=== PATIENT | female | born 1950 | race Caucasian/White ===

== ENCOUNTER 2020-09-10 14:01 | Outpatient (CLI) | payer MEDICARE, OTHER, SELFPAY ==
--- NOTE | ~2020-09-10 | CT_ITS ---
EXAMINATION: CT abdomen pelvis w con DATE: 09/10/2020 14:35 INDICATION: Lower abdominal pain. TECHNIQUE: Computed tomography (CT) of the abdomen and pelvis was performed with 100 mL Omnipaque-350 intravenous contrast. Automated exposure control and iterative reconstruction technique were employe d. The dose-length product was 455.39 mGy-cm. COMPARISON: 05/18/2014 FINDINGS: Mild emphysema at the lung bases. Heart size is normal. No pericardial or pleural effusion. Small sli ding-type hiatal hernia. Epigastric ventral hernia containing omental fat which measures 8.0 x 6.3 x 3.7 cm and which extends through a 2 cm diameter orifice. Interval increase in size of a now 9 mm lef t hepatic cyst. Mild central intrahepatic biliary ductal dilation with normal caliber common bile bartolome t which is within normal limits post cholecystectomy with surgical clips at the gallbladder fossa. Sp domenic, left adrenal gland and bilateral kidneys are normal. 1 cm right adrenal nodule with lack of int erval change most consistent with an adenoma. A few punctate calcification at the head and neck of th e pancreas likely sequela of chronic pancreatitis. Again seen is moderate sigmoid predominant diverti culosis with inflammatory stranding surrounding a diverticulum with wall thickening at the proximal s igmoid colon consistent with diverticulitis. No abscess, free intraperitoneal fluid or extraluminal g as to suggest perforation. Small bowel and appendix are normal. Partially decompressed bladder is unr emarkable. The uterus is not identified and has likely been surgically resected. No pathologically enlarged abdominal or pelvic lymphadenopathy. Moderate lower thoracic and mild lumbar spondylosis. IMPRESSION: 1. The graft within, dictated and sigmoid diverticulitis. 2. Fat-containing epigastric ventral hernia. 3. Small sliding-type hiatal hernia. 4. Mild emphysema. Reviewed, dictated and finalized at location A. ON PUNCHER
[2020-09-10 14:32] LABS: Estimated Glomerular Filt Rate > 60
== END 2020-09-10 14:02 | disposition home or self-care (01) ==
PROVIDERS: PCP Internal Medicine; Visit Provider Nurse Practitioner
DX: K43.9 Ventral hernia without obstruction or gangrene (principal); K44.9 Diaphragmatic hernia without obstruction or gangrene; J43.9 Emphysema, unspecified; K76.89 Other specified diseases of liver; K57.30 Diverticulosis of large intestine without perforation or abscess without bleeding; M47.815 Spondylosis without myelopathy or radiculopathy, thoracolumbar region
CPT/HCPCS: 74177; Q9967

== ENCOUNTER 2022-07-13 12:43 | Outpatient (CLI) | payer MEDICARE, OTHER, SELFPAY ==
--- NOTE | ~2022-07-13 | CT_ITS ---
EXAMINATION: CT abdomen pelvis w con INDICATION: Left-sided abdominal pain TECHNIQUE: Computed tomographic images of the abdomen and pelvis were obtained after the administrati on of 100 cc of Omnipaque 350 intravenous contrast. The dose-length product (DLP) was 313.30 mGy-cm. Automated exposure control and iterative reconstruction technique were employed. COMPARISON: 09/10/2020 FINDINGS: Minimal dependent atelectasis is present in the lung bases. The heart size is normal. There is a small sliding hiatal hernia. The gallbladder is surgically absent. There is mild enlargement of the common bile duct and central intrahepatic ducts which is likely due to post cholecystectomy stat e. Cysts of the liver measure up to 10 mm. There is a 6 mm cyst of the spleen. The pancreas and left adrenal gland are normal. There is a stable 10 mm adenoma of the right adrenal gland. A widemouth mid line epigastric hernia containing fat is unchanged. The kidneys are unremarkable. There is colonic di verticulosis. There is edematous stranding of the pericolic fat adjacent to the distal descending col on. There is no evidence of perforation or abscess. No pathologically enlarged abdominal or pelvic ly mph nodes are identified. There is no free intraperitoneal gas or evidence of bowel obstruction. The appendix is normal. There is calcified atherosclerosis of the aorta and many of the other arteries. T here is mild lumbar spondylosis. IMPRESSION: 1. Acute, uncomplicated diverticulitis of the distal descending colon. 2. Stable wid[place] midline epigastric hernia containing fat. Reviewed, dictated and finalized at location B.
[2022-07-13 13:11] LABS: Estimated Glomerular Filt Rate > 60
== END 2022-07-13 12:44 | disposition home or self-care (01) ==
LOC: ANHIMG 12:48
PROVIDERS: PCP Internal Medicine; Visit Provider Clinical Nurse Specialist
DX: K57.92 Diverticulitis of intestine, part unspecified, without perforation or abscess without bleeding (principal); K43.9 Ventral hernia without obstruction or gangrene
CPT/HCPCS: 74177; Q9967

== ENCOUNTER → 2022-09-21 16:20 | Outpatient (CLI) | payer MEDICARE, OTHER, SELFPAY ==
--- NOTE | ~2022-09-21 | MR_ITS ---
EXAMINATION: MR lumbar spine wo con DATE: 09/21/2022 17:04 INDICATION: Low back pain. Radiculopathy. TECHNIQUE: Magnetic resonance imaging (MRI) of the lumbar spine was performed without intravenous con trast. Sequences included sagittal T2-weighted FSE, sagittal T2-weighted FS FSE, sagittal T1-weighted FSE, and axial T2-weighted FSE. COMPARISON: Lumbar spine MRI 01/29/2015 FINDINGS: There is 6 degrees dextrocurvature of thoracolumbar spine. Vertebral body heights are mike l. There is mildly decreased disc height from L2-L3 through L4-L5. The distal spinal cord signal inte nsity is normal. The conus medullaris is at L1. The following disc levels are specifically discussed: L1-L2: The disc is bulging. There is mild bilateral facet joint osteoarthritis. There is mild left ne ural foraminal stenosis. There is mild central canal stenosis. L2-L3: The disc is bulging and has an annular fissure. There is mild bilateral facet joint osteoarthr itis. There is mild bilateral neural foraminal stenosis. There is mild central canal stenosis. L3-L4: The disc is bulging and has an annular fissure. There is mild bilateral facet joint osteoarthr itis. There is mild bilateral neural foraminal stenosis. There is mild central canal stenosis. L4-L5: The disc is bulging and has an annular fissure. There is moderate bilateral facet joint osteoa rthritis. There is severe bilateral neural foraminal stenosis. There is mild central canal stenosis. L5-S1: The disc is bulging and has an annular fissure. There is severe bilateral facet joint osteoart hritis. There is mild bilateral neural foraminal stenosis. There is mild central canal stenosis. IMPRESSION: 1. Mild lumbar spondylosis, worsened from 01/29/2015. Reviewed, dictated and finalized at location A. ER MARKER
== END ==
PROVIDERS: PCP Internal Medicine; Visit Provider Nurse Practitioner Family
DX: M54.16 Radiculopathy, lumbar region (principal); M43.16 Spondylolisthesis, lumbar region
CPT/HCPCS: 72148

== ENCOUNTER → 2022-11-24 10:16 | Outpatient (CLI) | payer MEDICARE, OTHER, SELFPAY ==
--- NOTE | ~2022-11-24 | CT_ITS ---
CT Scan of the Chest without Contrast: Clinical Indication: Personal history of nicotine dependence, lung cancer screening Technique: Contiguous sections were acquired throughout the chest without intravenous contrast. Dose reduction technique was used on this scan by utilizing automated exposure control and iterative recon struction technique. The dose-length product (DLP) was 52.21 mGy-cm. Findings: There is no evidence of any significant mediastinal, hilar or axillary lymphadenopathy. Mild coronary artery calcifications are present. No aortic aneurysm. There is no evidence of pleural or pericardial effusion. 2 mm left lower lobe pulmonary nodule noted (axial image 47). No other significant pulmonary abnormal ity seen. Images through the upper abdomen reveal cholecystectomy clips. Impression: Lung RADS 2: Benign. Twelve-month follow-up screening CT recommended. Reviewed, dictated and finalized at [facility]. [facility] Impression: Lung RADS 2: Benign. Twelve-month follow-up screening CT recommended.
== END ==
PROVIDERS: PCP Internal Medicine; Visit Provider Clinical Nurse Specialist
DX: Z12.2 Encounter for screening for malignant neoplasm of respiratory organs (principal); Z87.891 Personal history of nicotine dependence
CPT/HCPCS: 71271

== ENCOUNTER → 2023-02-01 10:20 | Outpatient (CLI) | payer MEDICARE, OTHER, SELFPAY ==
--- NOTE | ~2023-02-01 | DEXA_ITS ---
Bone Density Report Name: GABE RAWLS Age: 72 Sex: Female Ethnicity: White Date of : 1950 Indication: osteopenia; height loss; hysterectomy; postmenopausal Referring Provider: Susan Madrigal Study: Bone densitometry was performed. Exam Date: February 01, 2023 Accession number: [id number] Bone Density: Region BMD T-score Z-score Classification AP Spine (L1-L4) 0.880 -1.5 0.9 Osteopenia Femoral Neck (Left) 0.723 -1.1 0.9 Osteopenia Total Hip (Left) 0.907 -0.3 1.5 Normal Femoral Neck (Right) 0.704 -1.3 0.8 Osteopenia Total Hip (Right) 0.868 -0.6 1.1 Normal Total Hip Mean 0.888 -0.5 1.3 Normal World Health Organization criteria for BMD impression classify patients as: Normal (T-score at or above -1.0), Osteopenia (T-score between -1.0 and -2.5), or Osteoporosis (T-score at or below -2.5). 10-year Fracture Risk(1): Major Osteoporotic Fracture 10% Hip Fracture 1.8% Reported Risk Factors: [place] (), Neck BMD=0.704, BMI=27.8 (1) FRAX(R) Version 3.08. Fracture probability calculated for an untreated patient. Fracture probability may be lower if the patient has received treatment. Previous Exams: Region Exam Age BMD T-score BMD Change BMD Change Date g/cm2 vs Baseline vs Previous AP Spine(L1-L4) 02/01/2023 72 0.880 -1.5 0.003 -0.010 10/09/2019 69 0.890 -1.4 0.013 0.043* 03/03/2016 65 0.847 -1.8 -0.031* -0.031* 09/09/2011 61 0.878 -1.5 Total Hip(Left) 02/01/2023 72 0.907 -0.3 0.035* 0.013 10/09/2019 69 0.893 -0.4 0.022 -0.002 03/03/2016 65 0.896 -0.4 0.024 0.024 09/09/2011 61 0.872 -0.6 Total Hip(Right) 02/01/2023 72 0.868 -0.6 -0.003 -0.020 10/09/2019 69 0.888 -0.4 0.017 0.012 03/03/2016 65 0.876 -0.5 0.005 0.005 09/09/2011 61 0.870 -0.6 *Denotes significance at 95% confidence level, LSC for AP Spine = 0.022 g/cm2, LSC for Total Hip = 0.027 g/cm2 Clinical Information Provided by Patient: Has used the following medications: Vitamin D, Jhonny Has the following medical conditions: Hysterectomy, DIVERTICULITIS Patient maximum height was 62 Menopause Age: 46 Drinks caffeinated beverages Onset of menses at age 10 Number of children 0 Impression: The patient has low bone mass, based on the Total
--- NOTE | ~2023-02-01 | MM_ITS ---
EXAMINATION: MM screening tracy BI w helga HISTORY: Screening TECHNIQUE: Craniocaudal and mediolateral oblique 3-D tomosynthesis images were obtained and synthetic 2-D images were generated. CAD analysis was submitted and interpreted. COMPARISON: Comparison to multiple prior studies sequentially, with oldest reviewed study dated 03/03. BREAST PARENCHYMAL COMPOSITION: There are scattered areas of fibroglandular density. FINDINGS: There are developing nodular asymmetries centered in the upper outer quadrant of the right breast, middle third. The left breast is stable without evidence for malignancy. IMPRESSION: 1. Developing nodular asymmetries in the right breast. 2. Additional mammographic views and possible breast ultrasound are recommended. BI-RADS Category 0: Incomplete: Needs additional imaging evaluation. Reviewed, dictated and finalized at location A. IMPRESSION: 1. Developing nodular asymmetries in the right breast. 2. Additional mammographic views and possible breast ultrasound are recommended . BI-RADS Category 0: Incomplete: Needs additional imaging evaluation.
== END ==
PROVIDERS: PCP Internal Medicine; Visit Provider Clinical Nurse Specialist
DX: Z12.31 Encounter for screening mammogram for malignant neoplasm of breast (principal); Z78.0 Asymptomatic menopausal state; R92.8 Other abnormal and inconclusive findings on diagnostic imaging of breast; M85.89 Other specified disorders of bone density and structure, multiple sites
CPT/HCPCS: 77063; 77067; 77080

== ENCOUNTER → 2023-02-28 08:11 | Outpatient (CLI) | payer MEDICARE, OTHER, SELFPAY ==
--- NOTE | ~2023-02-28 | MMUS_ITS ---
EXAMINATION: MM diagnostic tracy RT w helga, US breast RT limited HISTORY: Developing nodular asymmetries reported in right breast on 02/01/2023 screening mammogram exa mination TECHNIQUE: Additional 3-D tomosynthesis images of the right breast were performed and synthetic 2-D i mages were generated. CAD analysis was submitted and interpreted. High resolution upper outer and low er-outer quadrant right breast ultrasound was performed. COMPARISON: 02/01/2023 bilateral screening mammogram FINDINGS: MAMMOGRAPHIC FINDINGS: There is nodular appearing fibroglandular stroma in the outer half of the right breast. No suspicious mass or architectural distortion is evident mammographically, but a small mass may be masked by the nodular stroma. ULTRASOUND: 11o'clock 3 cm from nipple: Approximately 2.7 x 5 mm hypoechoic area without internal vascularity or posterior shadowing 10:00 6 cm from nipple: Parallel oval circumscribed largely sonolucent lesion measuring 4 x 6.3 mm, c onsistent with a cyst IMPRESSION: 1. Probable benign findings 2. 6 month diagnostic right mammogram and right breast ultrasound follow-up are recommended BI-RADS category 3, probably benign findings. Reviewed, dictated and finalized at location A. IMPRESSION: 1. Probable benign findings 2. 6 month diagnostic right mammogram and right breast ultrasound follow-up are recommended BI-RADS category 3, probably benign findings.
== END ==
PROVIDERS: PCP Internal Medicine; Visit Provider Clinical Nurse Specialist
DX: R92.8 Other abnormal and inconclusive findings on diagnostic imaging of breast (principal)
CPT/HCPCS: 76642; 77061; 77065; G0279

== ENCOUNTER → 2023-07-14 14:16 | Outpatient (CLI) | payer MEDICARE, OTHER, SELFPAY ==
--- NOTE | ~2023-07-14 | MMUS_ITS ---
EXAMINATION: MM diagnostic tracy RT w helga, US breast RT limited HISTORY: Short-term follow-up of probable benign sonographic findings of 11:00 3 cm from nipple and 1 0:00 6 cm from nipple TECHNIQUE: ML, MLO and CC 3-D tomosynthesis images of the right breast were performed and synthetic 2 -D images were generated. CAD analysis was submitted and interpreted. High resolution targeted right 11:00 and 10:00 breast ultrasound was performed. COMPARISON: February 28, 2023 diagnostic right mammogram and limited right breast ultrasound examination BREAST PARENCHYMAL COMPOSITION: There are scattered areas of fibroglandular density. FINDINGS: MAMMOGRAPHIC FINDINGS: Scattered benign calcifications. No suspicious mass, architectural distortion, malignant calcificatio n, skin thickening or retraction or significant new or developing density is noted compared to 023. ULTRASOUND: 10:00 6 cm from nipple: 7.5 x 4.7 x 4.5 mm circumscribed sonolucency consistent with simple cyst 11:00 3 cm from nipple: Irregular hypoechoic 6.3 x 4.3 x 5.1 mm hypoechoic area with some posterior s hadowing but no internal vascularity on color flow imaging this is increased mildly in size since 02/05. Ultrasound-guided biopsy is recommended. IMPRESSION: 1. Irregular hypoechoic mildly shadowing up to 6.3 mm sonographic lesion of right breast at 11:00 3 c m from nipple 2. Ultrasound-guided biopsy of right breast 11:00 lesion is recommended BI-RADS category 4, suspicious findings. Dr. Manriquez telephoned the mammogram and ultrasound report and ultrasound-guided biopsy recommendation f or right breast 11:00 lesion on 07/17/2023 at hours to Reviewed, dictated and finalized at location A. IMPRESSION: 1. Irregular hypoechoic mildly shadowing up to 6.3 mm sonographic lesion of rig ht breast at 11:00 3 cm from nipple 2. Ultrasound-guided biopsy of right breast 11:00 lesion is recommended BI-RADS category 4, suspicious findings. Dr. Manriquez telephoned the mammogram and ultrasound report and ultrasound-guided b iopsy recommendation for right breast 11:00 lesion on 07/17/2023 at hours to
== END ==
PROVIDERS: PCP Surgery; Visit Provider Surgery
DX: R92.8 Other abnormal and inconclusive findings on diagnostic imaging of breast (principal)
CPT/HCPCS: 76642; 77061; 77065; G0279

== ENCOUNTER 2023-08-09 10:22 | Outpatient (CLI) | payer MEDICARE, OTHER, SELFPAY ==
--- NOTE | ~2023-08-09 | MMUS_ITS ---
EXAMINATION: US breast biopsy RT w image, MM post biopsy invasive RT DATE: 08/09/2023 12:09 (accession [id number]), 08/09/2023 12:08 (accession [id number]) INDICATION: Indeterminate mass in the upper outer quadrant of the right breast. Ultrasound-guided cor e biopsy is requested to evaluate for malignancy. TECHNIQUE AND FINDINGS: The risks and potential benefits of the procedure were discussed with the patient including bleeding and infection. A time out was performed. The skin of the right breast was prepared and draped in usua l sterile fashion. 1% lidocaine was used for superficial anesthesia. 1% lidocaine with epinephrine wa s used for deep anesthesia. A vacuum-assisted biopsy needle was advanced through to the outer edge of the region of interest from an inferolateral approach utilizing sonographic guidance. A total of three tissue core samples were obtained through the lesion. A tissue marker clip was then placed at the biopsy site. Hemostasis was achieved. A sterile bandage was applied. The patient tolerated procedure well and there was no evidence of immediate complication. The patient was given verbal instructions to return to the Emergency Department in the event of severe breast pa in or rapid breast enlargement. A two view right breast mammogram was obtained to document tissue mar ker clip placement. IMPRESSION: 1. Successful ultrasound-guided vacuum-assisted biopsy of right breast mass with tissue marker placem ent. Reviewed, dictated and finalized at location A. IMPRESSION: 1. Successful ultrasound-guided vacuum-assisted biopsy of right breast mass wit h tissue marker placement.
== END 2023-08-09 10:23 | disposition home or self-care (01) ==
PROVIDERS: PCP Internal Medicine; Visit Provider Physician Assistant Surgical
DX: N62 Hypertrophy of breast (principal); R92.0 Mammographic microcalcification found on diagnostic imaging of breast
CPT/HCPCS: 19083; 88305; A4648

== ENCOUNTER 2023-08-22 13:09 | Emergency (ER) | payer MEDICARE, OTHER, SELFPAY ==
--- NOTE | 2023-08-22 13:13 | ED.URI ---
HPI - URI/Sore Throat General Chief Complaint: Upper Respiratory Infection Stated Complaint: Cold symptoms Time Seen by Provider: 08/22/23 13:13 Source: patient Mode of arrival: ambulatory Limitations: no limitations History of Present Illness HPI Narrative: Judy is a 73-year-old female patient presenting to the clinic today with complaints of fatigue, cough, chest congestion, and some shortness of breath x3-4 days. She reports she is having a nonproductive cough. No known fever or chills. MD elicited complaint: sore throat and nasal congestion Related Data Home Medications Medication Instructions Recorded Confirmed bilberry fruit 1,000 mg capsule 1 g PO DAILY 09/10/20 08/22/23 cholecalciferol (vitamin D3) 50 50 mcg PO DAILY 09/10/20 08/22/23 mcg (2,000 unit) capsule latanoprost (PF) 0.005 % eye drops 1 drp ophthalmic (eye) DAILY 09/10/20 08/22/23 lutein 20 mg capsule 25 mg PO DAILY 09/10/20 08/22/23 magnesium 200 mg tablet 144 mg PO DAILY 09/10/20 08/22/23 timolol 0.25 % eye drops 1 drp ophthalmic (eye) DAILY 09/10/20 08/22/23 vitamin B complex 1 tablet PO DAILY 09/10/20 08/22/23 calcium carbonate 200 mg calcium 200 mg PO DAILY 07/21/21 08/22/23 (500 mg) chewable tablet (Tums) elderberry fruit 350 mg capsule 350 mg PO DAILY 11/14/22 08/22/23 vitamin C 500 mg-quercetin 250 1 cap PO DAILY 11/14/22 08/22/23 mg-bioflavonoids, citrus 33 mg capsule (Quercetin Complex) Allergies Allergy/AdvReac Type Severity Reaction Status Date / Time Penicillins Allergy Unknown Swelling Verified 08/22/23 13:17 codeine Allergy Pancreas Verified 08/22/23 13:17 attack Review of Systems Review of Systems: Pertinent positives per HPI. Patient denies any fever, chills, rash, headache, visual changes, dizziness, chest pain, palpitations, nausea, vomiting, diarrhea, constipation, abdominal pain, or any urinary issues. PMF Past Medical History Medical History Chronic airway obstruction Depression Diverticulitis Granuloma annulare Hypercholesterolemia Hyperglycemia EDMOND (obstructive sleep apnea) Postmenopausal Surgical History Surgical History History of hysterectomy History of parotidectomy Family History Family History Sibling Family history of diabetes mellitus in first degree relative Lung cancer Mother Stomach cancer Social History Social History Smoking status: Former smoker Smoking end date: 11/06/99 Alcohol intake: current Substance use: never Substance use type: does not use Lack of Transportation: No Lack of Food: Never True Current Housing: I Have Housing Concerned About Future Housing: No Difficulty Paying Gas/Electric Bills: No Difficulty Paying for Meds: No Currently Unemployed: No Education: Bachelor's Degree Difficulty w/ Childcare or Family Care: No Comments At the time of my signature, I reviewed and agree with the nursing past medical, surgical, social, and family history. There is no relevant family history pertinent to the patient complaint. Exam Narrative: General: Well-developed, well nourished, in no apparent distress Head: Normocephalic, atraumatic Eyes: Pupils equally round and reactive to light bilaterally, EOM intact, sclera and conjunctive clear, no discharge, lids normal Ears: TMs intact and clear, ear canals clear, no drainage, grossly hearing normal. Nose: Nares patent, clear nasal discharge, no inflammation, no sinus tenderness. Mouth: Oral pharynx without lesions or masses, good dentition, MMM. Neck: Supple, trachea midline, no enlargement of anterior or posterior cervical nodes, no thyroid masses or goiter palpable. Cardio: Regular rate and rhythm, s1 and s2 normal, no murmur appreciated. Resp: L
[2023-08-22 13:24] VITALS: BP 110/66; PULSE 70; RESP 16; TEMP 36.9; O2SAT 98
== END 2023-08-22 13:50 | disposition home or self-care (01) ==
PROVIDERS: Emergency Provider Nurse Practitioner Family; PCP Internal Medicine
DX: J06.9 Acute upper respiratory infection, unspecified (principal); Z87.891 Personal history of nicotine dependence; E78.00 Pure hypercholesterolemia, unspecified
CPT/HCPCS: 99213; G0463

== ENCOUNTER 2023-08-25 15:05 | Emergency (ER) | payer MEDICARE, OTHER, SELFPAY ==
--- NOTE | ~2023-08-25 | XR_ITS ---
EXAMINATION: XR chest 2V DATE: 08/25/2023 15:27 INDICATION: Cough and shortness of breath TECHNIQUE: PA and lateral views of the chest are obtained. COMPARISON: None available FINDINGS: The lungs are free of acute opacities. No pleural effusion or pneumothorax. The cardiomedia stinal silhouette is normal. There is moderate thoracic spondylosis. IMPRESSION: 1. No acute cardiopulmonary abnormality. Reviewed, dictated and finalized at location F.
[2023-08-25 15:18] VITALS: BP 108/88; PULSE 87; RESP 16; TEMP 36.2; O2SAT 99
--- NOTE | 2023-08-25 15:36 | ED.URI ---
HPI - URI/Sore Throat General Chief Complaint: Upper Respiratory Infection Stated Complaint: Cough;Sore Throat;Shortness of breath Source: patient Mode of arrival: ambulatory Limitations: no limitations History of Present Illness HPI Narrative: 73-year-old female presenting with complaints of fatigue, nonproductive cough, chest congestion. Onset one week. Patient was seen at this facility 3 days ago, prescribed albuterol inhaler, tessalon perles and prednisone for URI. She reports med compliance, but the cough is worse and kept her up last night. Denies sob, wheezing, n/v/d/f/c. Taking Mucinex and Flonase. Related Data Home Medications Medication Instructions Recorded Confirmed bilberry fruit 1,000 mg capsule 1 g PO DAILY 09/10/20 08/25/23 cholecalciferol (vitamin D3) 50 50 mcg PO DAILY 09/10/20 08/25/23 mcg (2,000 unit) capsule latanoprost (PF) 0.005 % eye drops 1 drp ophthalmic (eye) DAILY 09/10/20 08/25/23 lutein 20 mg capsule 25 mg PO DAILY 09/10/20 08/25/23 magnesium 200 mg tablet 144 mg PO DAILY 09/10/20 08/25/23 timolol 0.25 % eye drops 1 drp ophthalmic (eye) DAILY 09/10/20 08/25/23 vitamin B complex 1 tablet PO DAILY 09/10/20 08/25/23 calcium carbonate 200 mg calcium 200 mg PO DAILY 07/21/21 08/25/23 (500 mg) chewable tablet (Tums) elderberry fruit 350 mg capsule 350 mg PO DAILY 11/14/22 08/25/23 vitamin C 500 mg-quercetin 250 1 cap PO DAILY 11/14/22 08/25/23 mg-bioflavonoids, citrus 33 mg capsule (Quercetin Complex) Allergies Allergy/AdvReac Type Severity Reaction Status Date / Time Penicillins Allergy Unknown Swelling Verified 08/22/23 13:17 codeine Allergy Pancreas Verified 08/22/23 13:17 attack Review of Systems Review of Systems: CONSTITUTIONAL: Denies body aches, fever, chills, or sweats. EYES: Denies visual changes, redness, or discharge. ENT: Reports rhinorrhea, congestion, denies sore throat, or otalgia. CARDIOVASCULAR: Denies chest pain, palpitations, or edema. RESPIRATORY: Reports cough, denies sob, wheezing. GASTROINTESTINAL: Denies abdominal pain, nausea, vomiting, or diarrhea. GENITOURINARY: Denies dysuria or hematuria. SKIN: Denies rash, itching, or wounds. MUSCULOSKELETAL: Denies back pain, joint pain, or myalgia. NEUROLOGIC: Denies headache, numbness, tingling, or weakness. All systems reviewed & are unremarkable except as noted in HPI and below PMFSH Past Medical History Medical History Chronic airway obstruction Depression Diverticulitis Granuloma annulare Hypercholesterolemia Hyperglycemia EDMOND (obstructive sleep apnea) Postmenopausal Surgical History Surgical History History of hysterectomy History of parotidectomy Family History Family History Sibling Family history of diabetes mellitus in first degree relative Lung cancer Mother Stomach cancer Social History Social History Smoking status: Former smoker Smoking end date: 11/06/99 Alcohol intake: current Substance use: never Substance use type: does not use Lack of Transportation: No Lack of Food: Never True Current Housing: I Have Housing Concerned About Future Housing: No Difficulty Paying Gas/Electric Bills: No Difficulty Paying for Meds: No Currently Unemployed: No Education: Bachelor's Degree Difficulty w/ Childcare or Family Care: No Comments At time of signature, I have reviewed and agree with nursing past medical, surgical, social and family history unless otherwise noted. Please see nursing chart for further information. There is no relevant family history pertinent to the presenting complaint Exam Narrative: GENERAL: Well-appearing, in no acute distress. EYES: EOMI. No redness or drainage. Conjunctivae normal. ENT: Mucous membranes
== END 2023-08-25 15:55 | disposition home or self-care (01) ==
PROVIDERS: Emergency Provider Nurse Practitioner Family; PCP Internal Medicine
DX: J06.9 Acute upper respiratory infection, unspecified (principal); Z87.891 Personal history of nicotine dependence; E78.00 Pure hypercholesterolemia, unspecified
CPT/HCPCS: 71046; 99213; G0463

== ENCOUNTER → 2023-11-29 14:21 | Outpatient (CLI) | payer MEDICARE, OTHER, SELFPAY ==
--- NOTE | ~2023-11-29 | CT_ITS ---
EXAMINATION:CT diagnostic chest wo con DATE: 11/29/2023 14:38 INDICATION: Personal history of nicotine dependence. Lung nodule. TECHNIQUE: Computed tomography (CT) of the chest was performed without intravenous contrast. Automate d exposure control and iterative reconstruction technique were employed. The dose-length product (DLP ) was 62.21 mGy-cm. COMPARISON: Chest CT 11/24/2022 FINDINGS: There is mild emphysema. There is mild scarring at the lung apices. There are a few scatter ed nodules in the lungs measuring up to 3 mm. No pleural effusion. The heart size is normal. There ar e coronary artery calcifications. No pericardial effusion. There is a 12 mm cyst in the liver. There is severe thoracic spondylosis. IMPRESSION: 1. Lung-RADS category 2: Benign appearance or behavior. Continue annual screening with noncontrast lo w-dose chest CT in 12 months. Reviewed, dictated and finalized at location E. [employer] IMPRESSION: 1. Lung-RADS category 2: Benign appearance or behavior. Continue annual screeni ng with noncontrast low-dose chest CT in 12 months.
== END ==
PROVIDERS: PCP Clinical Nurse Specialist; Visit Provider Clinical Nurse Specialist
DX: Z12.2 Encounter for screening for malignant neoplasm of respiratory organs (principal); Z87.891 Personal history of nicotine dependence
CPT/HCPCS: 71250

== ENCOUNTER 2024-07-01 12:41 | Outpatient (CLI) | payer MEDICARE, OTHER, SELFPAY ==
--- NOTE | ~2024-07-01 | CT_ITS ---
CT of the Abdomen and Pelvis: Indication: Abdominal pain Technique: 2.5 mm axial scans were obtained through the abdomen and pelvis following intravenous adm inistration of 100 cc of Omnipaque 350. Dose reduction technique was used on this scan by utilizing a utomated exposure control and iterative reconstruction technique. The dose-length product (DLP) was 4 53.79 mGy-cm. COMPARISON: 07/13/2022 Findings: Scans through the lung bases are unremarkable. Stable left hepatic lobe cyst. Status post cholecystectomy. The spleen, pancreas, adrenals and kidney s are within normal limits. There are atherosclerotic calcifications of the aorta. No lymphadenopath y. No bowel obstruction or bowel wall thickening. There is no evidence to suggest acute appendicitis. Mo derate to large fat-containing ventral hernia present, superior to the umbilicus. Images through the pelvis were performed. Urinary bladder unremarkable. No pelvic mass seen. No ascit es. Impression: Moderate to large ventral fat-containing hernia, superior to the umbilicus. Reviewed, dictated and finalized at location . Impression: Moderate to large ventral fat-containing hernia, superior to the umbilicus.
[2024-07-01 12:59] LABS: Estimated Glomerular Filt Rate > 60
== END 2024-07-01 12:42 ==
LOC: MICIMG 12:42
PROVIDERS: PCP Clinical Nurse Specialist; Visit Provider Clinical Nurse Specialist
DX: R10.12 Left upper quadrant pain (principal); R19.8 Other specified symptoms and signs involving the digestive system and abdomen; K43.9 Ventral hernia without obstruction or gangrene
CPT/HCPCS: 74177; Q9967

== ENCOUNTER 2025-06-08 13:26 | Emergency (ER) | payer MEDICARE, OTHER, SELFPAY ==
--- NOTE | 2025-06-08 13:34 | ED_ITS ---
HPI - General Adult General Chief complaint: Skin/Abscess/Foreign Body Stated complaint: Left Eye Irritation Time Seen by Provider: 06/08/25 13:34 Source: patient Mode of arrival: ambulatory Limitations: no limitations History of Present Illness HPI narrative: 74-year-old female patient presents to the [facility] with complaints a rash rash to the left arm, left leg, forehead and the left upper eyelid. Patient states has been there for about 3-4 days now. Patient states she was working outside pulling weeds on . Patient states she has been putting Benadryl cream on the rash but denies taking it oral Benadryl or antihistamines. Related Data Home Medications ?Medication ?Instructions ?Recorded ?Confirmed ?Last Taken ?Type bilberry fruit 1,000 mg capsule 1 g PO DAILY 09/10/20 06/24/24 Unknown History cholecalciferol (vitamin D3) 50 50 mcg PO DAILY 09/10/20 06/24/24 Unknown History mcg (2,000 unit) capsule latanoprost (PF) 0.005 % eye drops 1 drp ophthalmic (eye) DAILY 09/10/20 06/24/24 Unknown History magnesium 200 mg tablet 144 mg PO DAILY 09/10/20 06/24/24 Unknown History timolol 0.25 % eye drops 1 drp ophthalmic (eye) DAILY 09/10/20 06/24/24 Unknown History vitamin B complex 1 tablet PO DAILY 09/10/20 06/24/24 Unknown History calcium carbonate (Tums) 200 mg PO DAILY 07/21/21 06/24/24 Unknown History elderberry fruit 350 mg capsule 350 mg PO DAILY 11/14/22 06/24/24 Unknown History quercetin and zinc supplement PO 11/16/23 06/24/24 Unknown History Super Beats PO 01/16/25 Unknown History pantoprazole 40 mg tablet,delayed 40 mg PO QAM 01/16/25 Unknown History release D-H-E-zinc-copper ox-lut-zeax PO 06/08/25 Unknown History Allergies Allergy/AdvReac Type Severity Reaction Status Date / Time Penicillins Allergy Unknown Swelling Verified 06/08/25 13:53 codeine Allergy Pancreas Verified 06/08/25 13:53 attack Review of Systems Review of Systems: CONSTITUTIONAL: Denies fever, chills, or sweats. EYES: Denies visual changes, redness, or discharge. ENT: Denies rhinorrhea, congestion, sore throat, or otalgia. CARDIOVASCULAR: Denies chest pain, palpitations, or edema. RESPIRATORY: Denies cough or dyspnea. GASTROINTESTINAL: Denies abdominal pain, nausea, vomiting, or diarrhea. GENITOURINARY: Denies dysuria or hematuria. SKIN: Positive rash or itching. MUSCULOSKELETAL: Denies back pain, joint pain, or myalgia. NEUROLOGIC: Denies headache, numbness, or weakness. PSYCHIATRIC: Denies anxiety or depression. [facility] Past Medical History Medical History Cataract, right eye Abnormal mammogram of right breast Shortness of Breath Former smoker Screening for breast cancer Screening for metabolic disorder Vitamin D deficiency Screening for endocrine disorder Granuloma annulare Hyperglycemia EDMOND (obstructive sleep apnea) Chronic airway obstruction Diverticulitis Hypercholesterolemia Postmenopausal Surgical History Surgical History History of parotidectomy History of hysterectomy Family History Family History Sibling Family history of diabetes mellitus in first degree relative Lung cancer Mother Stomach cancer Social History Social History Smoking status: Former smoker Smoking end date: 11/06/99 Alcohol intake: current Substance use: never Substance use type: does not use Do You Feel Safe in your Home?: Yes Lack of Transportation: No Lack of Food: Never True Current Housing: I Have Housing Concerned About Future Housing: No Difficulty Paying Gas/Electric Bills: No Difficulty Paying for Meds: No Currently Unemployed: No Education: Bachelor's Degree Difficulty w/ Childcare or Family Care: No Comments At the time of my signature I agree with nursing past medical history, surgical, social, and family history. There is no relevant family history pertinent to the presenting complaint. Exam Narrative: GENERAL: Well-appearing, well-nourished, and in no acute distress. HEAD: Normocephalic, atraumatic. EYES: PERRLA and EOMI. ENT: Nares clear, no rhinorrhea or epistaxis. Mucous membranes moist. NECK: Supple. No lymphadenopathy CHEST: Clear to auscultation. No respiratory distress. HEART: Regular rate and rhythm. No murmur heard. Normal peripheral pulses. ABDOMEN: Soft, nontender, nondistended, normal active bowel sounds. EXTREMITIES: Normal range of motion. No edema. SKIN: Warm, dry, patient has erythemic rash noted to the forehead and some redness noted to the left upper eyelid with slight swelling. No eye involvement. Patient does have a vesicle light linear rash noted to multiple areas of the left forearm and a similar rash noted to the left anterior leg. No open wounds or drainage. NEURO: No focal deficits. Alert and oriented x3. Course Course Level of Care: Express Care Visit Vital Signs Vital signs: Vital Signs Temperature 36.7 C 06/08/25 13:40 Pulse Rate 70 06/08/25 13:40 Respiratory Rate 20 06/08/25 13:40 Blood Pressure 122/71 06/08/25 13:40 Pulse Oximetry 100 06/08/25 13:40 Oxygen Delivery Room Air 06/08/25 13:40 Temperature 36.7 C 06/08/25 13:40 Pulse Rate 70 06/08/25 13:40 Respiratory Rate 20 06/08/25 13:40 Blood Pressure 122/71 06/08/25 13:40 Pulse Oximetry 100 06/08/25 13:40 Oxygen Delivery Room Air 06/08/25 13:40 Vital signs reviewed. Medical Decision Making MDM Narrative Medical decision making narrative: Plan of care patient is discharged home with oral prednisone taper dose and she does have the rash to the face and eyelid. Also will prescribe her a topical steroid ointment to help with the itching and highly recommend that she take a daily antihistamine something such as Zyrtec, Claritin or Deisy to help with the itching as well. Patient verbalized understanding denies any other questions or concerns at this time. Differential Diagnosis Differential Diagnosis: Differential diagnosis: Conjunctivitis, foreign body, corneal ulcer, Keratitis, dendritic lesions, corneal abrasion, very orbital infection, orbital cellulitis, orbital pain, acute narrow angle glaucoma, detached retina, central retinal a rtery occlusion, complete hyphema, vitreous hemorrhage, optic neuritis, globe disruption Vital Signs Vital Signs: Vital Signs Temperature 36.7 C 06/08/25 13:40 Pulse Rate 70 06/08/25 13:40 Respiratory Rate 20 06/08/25 13:40 Blood Pressure 122/71 06/08/25 13:40 Pulse Oximetry 100 06/08/25 13:40 Oxygen Delivery Room Air 06/08/25 13:40 Temperature 36.7 C 06/08/25 13:40 Pulse Rate 70 06/08/25 13:40 Respiratory Rate 20 06/08/25 13:40 Blood Pressure 122/71 06/08/25 13:40 Pulse Oximetry 100 06/08/25 13:40 Oxygen Delivery Room Air 06/08/25 13:40 Critical Care Time Critical Care Time Critical Care Time: No Discharge Plan Discharge Clinical Impression: Contact dermatitis and eczema due to plant Patient Disposition: Home Condition: Stable Instructions: Antibiotic Form, Contact Dermatitis (ED) Additional Instructions: Wash the area with soap and cool water only. Use skin creams/lotion or anti-itch medicine to reduce itchiness Avoid scratching when possible to prevent worsening of the condition and disruption of the skin that could lead to bacterial infection To relieve itching, place a cool washcloth or some ice over the area that itches, rather than scratching Follow up with primary care provider or seek ER if you have trouble breathing, become hoarse, or start wheezing, develop belly cramps, vomiting or feel dizzy. Patient Language: Turkish Prescriptions: New prednisone 10 mg tablets,dose pack See Rx Instructions .ROUTE .COMPLEX Qty: 48 0RF Rx Instructions: 50 mg x 3 days, 40 mg x 3 days, 30 mg x 3 days, 20 mg x 3 days, 10 mg x 3 days triamcinolone acetonide 0.5 % cream 1 applic topical BID Qty: 15 0RF No Action V-O-E-zinc-copper ox-lut-zeax [Lutein Plus With Zeaxanthin] PO latanoprost (PF) 0.005 % drops 1 drp ophthalmic (eye) DAILY timolol 0.25 % drops 1 drp ophthalmic (eye) DAILY cholecalciferol (vitamin D3) 50 mcg (2,000 unit) capsule 50 mcg PO DAILY vitamin B complex Tablet 1 tablet PO DAILY bilberry fruit 1,000 mg capsule 1 g PO DAILY magnesium 200 mg tablet 144 mg PO DAILY calcium carbonate [Tums] 200 mg calcium (500 mg) tablet,chewable 200 mg PO DAILY elderberry fruit 350 mg capsule 350 mg PO DAILY quercetin and zinc supplement PO pantoprazole 40 mg tablet,delayed release (DR/EC) 40 mg PO QAM Super Beats PO (DME) CPAP Equipment See Rx Instructions .Route .MEDSUPPLY Qty: 1 0RF Rx Instructions: Rx: CPAP mask/filters/tubing Dx: G47.33 Length of treatment: 99+ months DME: [employer] *Please link patient's CPAP machine to me through [facility]* Physician: Dr. Crys Kaminski DO Follow-up/Referrals: Erasto Nuñez DO [Primary Care Provider] - Time of Disposition: 14:01
[2025-06-08 13:40] VITALS: BP 122/71; PULSE 70; RESP 20; TEMP 36.7; O2SAT 100
== END 2025-06-08 14:08 | disposition home or self-care (01) ==
PROVIDERS: Emergency Provider Nurse Practitioner Family; PCP Internal Medicine
DX: L25.5 Unspecified contact dermatitis due to plants, except food (principal); E55.9 Vitamin D deficiency, unspecified; E78.00 Pure hypercholesterolemia, unspecified; H26.9 Unspecified cataract; G47.30 Sleep apnea, unspecified; Z87.891 Personal history of nicotine dependence
CPT/HCPCS: 99213; G0463